=== PATIENT | male | born 1970 | race Caucasian/White ===

== ENCOUNTER 2019-04-29 21:31 | Inpatient (IN) | payer OTHER ==
[~2019-04-29] VITALS: Ht 167.6 cm; Wt 120.5 kg
[2019-04-29] MEDS ORDERED: SEROQUEL200 MG PO (21:46)
[2019-04-29] MEDS ORDERED: MINIPRESS1 MG PO (21:47)
[2019-04-29] MEDS ORDERED: ZONEGRAN100 MG PO (21:47)
[2019-04-29] MEDS ORDERED: AMOXICILLIN500 M1 PO (21:47)
[2019-04-29 23:02] LABS: BASOPHILS 0.3 % (0-2); EOSINOPHILS 3.3 % (0-7); HEMATOCRIT 41.5 % (42.0-54.0); LYMPHOCYTES 28.5 % (15-50); MCH 34.8 pg (26.0-34.0); MCHC 33.7 g/dL (31.0-37.0); MCV 103.2 fL (80.0-100.0); MEAN PLATELET VOLUME 9.4 fL (7.4-10.4); MONOCYTES 8.6 % (2-11); NEUTROPHILS 59.3 % (40-80); PLATELET COUNT 187 10x3/uL (130-400); RBC 4.02 10x6/uL (4.20-6.10); RDW 13.3 % (11.5-14.5)
[2019-04-29 23:03] LABS: APTT 27.6 SECONDS (22.8-39.4); INR 0.98 (0.85-1.17); PROTIME 12.5 SECONDS (11.6-15.0)
[2019-04-29 23:08] LABS: CALC OSMOLALITY 272 mosm/kg (275-300); CALCIUM 8.8 mg/dL (8.5-10.1); CARBON DIOXIDE 23.7 mmol/L (21.0-32.0); CHLORIDE - SERUM 104 mmol/L (98-107); CREATININE - SERUM 0.9 mg/dL (0.6-1.3); GLUCOSE 80 mg/dL (74-106); POTASSIUM - SERUM 3.9 mmol/L (3.5-5.1); SODIUM 138 mmol/L (136-145); UREA NITROGEN 7 mg/dL (7-18); eGFR NON AFRICAN AMERICAN > 90 mL/min (90-120)
[2019-04-29 23:24] LABS: ALBUMIN 3.7 g/dL (3.4-5.0); ALKALINE PHOSPHATASE 85 U/L (46-116); ALT (SGPT) 85 U/L (10-68); BILIRUBIN - TOTAL 0.43 mg/dL (0.2-1.3); CKMB 6.3 U/L (0.0-3.6); PROTEIN - SERUM 7.1 g/dL (6.4-8.2); TROPONIN-I < 0.017 ng/mL (0.000-0.060)
[2019-04-29 23:28] LABS: CREATINE KINASE 826 UL (21-232)
--- NOTE | 2019-04-29 23:38 | NUR ---
PT IN WITH C/O EDEMA TO BLE WORSE TODAY, STATES HE HAS SEEN HIS DOCTOR AND TAKING ANTIBIOTICS FOR BLE CELLULITIS. TODAY HE NOTIFIED MORE PAIN AND EDEMA, FAMILY AT BEDSIDE.
[2019-04-30 01:54] LABS: APPEARANCE CLEAR (CLEAR); BILIRUBIN NEGATIVE (NEGATIVE); COLOR YELLOW (YELLOW); GLUCOSE NEGATIVE (NEGATIVE); KETONE NEGATIVE (NEGATIVE); NITRITE NEGATIVE (NEGATIVE); PROTEIN NEGATIVE (NEGATIVE); SPECIFIC GRAVITY 1.005 (1.005-1.020); UROBILINOGEN NORMAL (NORMAL)
--- NOTE | 2019-04-30 02:50 | NUR ---
ADMITTED TO ROOM FROM FROM ER ALERT AND ORIENTIATED, EDEMA AND REDNESS NOTED TO LOWER LEGS, SEE ASSESSMENT CALL LIGHT IN REACH
[2019-04-30 03:50] VITALS: BP 141/81; Ht 167.6 cm; Wt 120.5 kg
[2019-04-30 05:16] VITALS: BP 141/81
--- NOTE | 2019-04-30 08:21 | NUR ---
PATIENT RECIEVED FROM PREVIOUS NURSE RESTING IN BED WITH NO NEEDS VOICED. ADMITTED WITH CELLULITIS TO BLE. REDNESS AND EDEMA NOTED. CL IN REACH
[2019-04-30 08:27] VITALS: BP 155/98
[2019-04-30 11:53] LABS: HEMATOCRIT 38.5 % (42.0-54.0); HEMOGLOBIN 13.1 g/dL (13.5-17.5); MCH 34.7 pg (26.0-34.0); MCV 101.9 fL (80.0-100.0); MEAN PLATELET VOLUME 8.6 fL (7.4-10.4); RBC 3.78 10x6/uL (4.20-6.10); RDW 13.7 % (11.5-14.5); WBC 2.8 10x3/uL (4.8-10.8)
[2019-04-30 11:54] LABS: PLATELET COUNT 148 10x3/uL (130-400)
[2019-04-30 12:47] VITALS: BP 137/85
[2019-04-30 12:58] LABS: EOSINOPHILS 1 % (0-7); LYMPHOCYTES 10 % (15-50); MONOCYTES 12 % (2-11); NEUTROPHILS 74 % (40-80); PLATELET ESTIMATE NORMAL; ROULEAUX OCC
[2019-04-30 16:53] VITALS: BP 136/93
--- NOTE | 2019-04-30 21:10 | NUR ---
PT C/O LEG PAIN 01/23. GAVE NORCO-5 PO AND ZOFRAN 4MG IV PUSH. GAVE SCHEDULED MEDS. CALLED DR. STAFFORD TO CORRECT DOSAGE ON ZONEGRAN. NO OTHER NEEDS. COMPLETE ASSESSMENT PER FLOW-SHEET. WILL CONTINUE TO MONITOR.
[2019-04-30 21:16] VITALS: BP 148/88
[2019-05-01 01:13] VITALS: BP 150/80
[2019-05-01 04:37] VITALS: BP 162/82
[2019-05-01 06:35] LABS: BASOPHILS 0 % (0-2); EOSINOPHILS 3.2 % (0-7); HEMATOCRIT 38.9 % (42.0-54.0); HEMOGLOBIN 12.9 g/dL (13.5-17.5); LYMPHOCYTES 24.8 % (15-50); MCH 35.1 pg (26.0-34.0); MCHC 33.2 g/dL (31.0-37.0); MEAN PLATELET VOLUME 9.9 fL (7.4-10.4); PLATELET COUNT 156 10x3/uL (130-400); RBC 3.68 10x6/uL (4.20-6.10); RDW 13.5 % (11.5-14.5); WBC 2.2 10x3/uL (4.8-10.8)
[2019-05-01 06:38] LABS: ALKALINE PHOSPHATASE 66 U/L (46-116); BILIRUBIN - TOTAL 0.67 mg/dL (0.2-1.3); CALCIUM 8.7 mg/dL (8.5-10.1); CARBON DIOXIDE 25.5 mmol/L (21.0-32.0); CHLORIDE - SERUM 106 mmol/L (98-107); CREATININE - SERUM 1.1 mg/dL (0.6-1.3); GLUCOSE 100 mg/dL (74-106); POTASSIUM - SERUM 3.7 mmol/L (3.5-5.1); PROTEIN - SERUM 6.1 g/dL (6.4-8.2); SODIUM 140 mmol/L (136-145); eGFR NON AFRICAN AMERICAN 76 mL/min (90-120)
[2019-05-01 06:41] LABS: MCV 105.7 fL (80.0-100.0)
[2019-05-01 06:45] LABS: ALT (SGPT) 55 U/L (10-68); CALC OSMOLALITY 277 mosm/kg (275-300); UREA NITROGEN 10 mg/dL (7-18)
--- NOTE | 2019-05-01 07:25 | NUR ---
ALERT AND ORIENTED, RESTING IN BED. NO C/O PAIN. NO S/S OF ACUTE DISTRESS. BLE EDEMA AND REDNESS. IV TO LEFT FOREARM, NS INFUSING @ 125ML/HR. SITE PATENT WITHOUT REDNESS OR SWELLING. ON ELECTROLYTE PROTOCOL. DENIES ANY NEEDS AT THIS TIME. CALL LIGHT IN REACH. WILL CONTINUE TO MONITOR.
[2019-05-01 08:55] VITALS: BP 132/85
[2019-05-01 12:04] VITALS: BP 136/94
[2019-05-01 14:46] LABS: % SATURATION 35 % (15-55); IRON 77 ug/dl (35-150); TOTAL IRON BIND CAPACITY 214 ug/dl (260-445); UNSAT IRON BIND CAPACITY 137 ug/dl (150-375)
[2019-05-01 16:08] VITALS: BP 135/93
--- NOTE | 2019-05-01 18:45 | NUR ---
ALERT AND ORIENTED, SITTING UP IN BED. C/O PAIN AND NAUSEA, GAVE NORCO AND ZOFRAN. NO S/S OF ACUTE DISTRESS NOTED. DENIES ANY NEEDS AT THIS TIME. CALL LIGHT IN REACH . WILL CONTINUE TO MONITOR.
[2019-05-01 19:30] VITALS: BP 158/92
--- NOTE | 2019-05-01 20:03 | NUR ---
I have reviewed this patient and I concur with the Shift Assessment completed by the Licensed Practical Nurse today this shift.
--- NOTE | 2019-05-01 22:21 | NUR ---
PT C/O LEG PAIN 02/23. GAVE NORCO-10 PO AND ZOFRAN 4 MG IV PUSH. ELEVATED FOOT OF BED. GAVE SCHEDULED MEDS AND BROUGHT PT SNACK. ASSESSMENT COMPLETE PER FLOW-SHEET. NO OTHER NEEDS. WILL REASSESS AND CONTINUE TO MONITOR.
[2019-05-02 00:30] VITALS: BP 151/89
[2019-05-02 04:30] VITALS: BP 148/79
[2019-05-02 06:10] LABS: HEMATOCRIT 38.4 % (42.0-54.0); HEMOGLOBIN 12.7 g/dL (13.5-17.5); MCH 34.6 pg (26.0-34.0); MCHC 33.1 g/dL (31.0-37.0); MCV 104.6 fL (80.0-100.0); MEAN PLATELET VOLUME 9.6 fL (7.4-10.4); PLATELET COUNT 163 10x3/uL (130-400); RBC 3.67 10x6/uL (4.20-6.10); RDW 13.1 % (11.5-14.5)
[2019-05-02 06:13] LABS: WBC 2.9 10x3/uL (4.8-10.8)
[2019-05-02 06:49] LABS: ANION GAP 14.3 mmol/L (8-16); BILIRUBIN - TOTAL 0.68 mg/dL (0.2-1.3); CALCIUM 8.6 mg/dL (8.5-10.1); CARBON DIOXIDE 22.3 mmol/L (21.0-32.0); CREATININE - SERUM 1.2 mg/dL (0.6-1.3); POTASSIUM - SERUM 3.6 mmol/L (3.5-5.1); PROTEIN - SERUM 6.6 g/dL (6.4-8.2)
[2019-05-02 07:58] LABS: EOSINOPHILS 2 % (0-7); LYMPHOCYTES 22 % (15-50); MONOCYTES 7 % (2-11); NEUTROPHILS 66 % (40-80)
[2019-05-02 07:59] VITALS: BP 123/83
[2019-05-02 07:59] LABS: PLATELET ESTIMATE NORMAL
[2019-05-02] MEDS ORDERED: DOXYCYCLINE HY100 M2 PO (14:33)
[2019-05-02] MEDS ORDERED: TEMAZEPAM30 MG PO (15:10)
[2019-05-02] MEDS ORDERED: VALIUM5 MG PO (15:10)
--- NOTE | 2019-05-02 15:21 | NUR ---
SPOKE WITH PT AND CORRECTED HOME MEDICATIONS. PT REQUESTS RX FOR DOXYCYLINE TO BE CALLED TO [facility]. CALLED AND SPOKE TO [facility] PHARMACIST.
== END 2019-05-02 16:02 | disposition home or self-care (01) | DRG 603 ==
LOC: D.ER 21:31 → D.MS 04-30 01:45
PROVIDERS: Family Medicine; ADMIT Internal Medicine Nephrology; ATTEND Internal Medicine Nephrology
DX: L03.116 Cellulitis of left lower limb (principal); Z68.41 Body mass index [BMI] 40.0-44.9, adult; L03.115 Cellulitis of right lower limb; R60.0 Localized edema; D75.89 Other specified diseases of blood and blood-forming organs; E66.01 Morbid (severe) obesity due to excess calories; M71.21 Synovial cyst of popliteal space [Baker], right knee; G40.909 Epilepsy, unspecified, not intractable, without status epilepticus; F43.10 Post-traumatic stress disorder, unspecified; Z72.89 Other problems related to lifestyle

== ENCOUNTER 2019-05-08 01:28 | Emergency (ER) | payer OTHER ==
[~2019-05-08] VITALS: Ht 167.6 cm; Wt 74.8 kg
[~2019-05-08 01:28] MED LIST: AMOXICILLIN500 M1 PO; DOXYCYCLINE HY100 M2 PO; MINIPRESS1 MG PO; SEROQUEL200 MG PO; TEMAZEPAM30 MG PO; VALIUM5 MG PO; ZONEGRAN100 MG PO
[2019-05-08 01:39] VITALS: Ht 167.6 cm; Wt 74.8 kg
[2019-05-08 02:42] LABS: HEMATOCRIT 38.4 % (42.0-54.0); MCH 34.8 pg (26.0-34.0); MCHC 33.9 g/dL (31.0-37.0); MCV 102.7 fL (80.0-100.0); MEAN PLATELET VOLUME 9.6 fL (7.4-10.4); PLATELET COUNT 155 10x3/uL (130-400); RBC 3.74 10x6/uL (4.20-6.10); RDW 13.1 % (11.5-14.5); WBC 2.5 10x3/uL (4.8-10.8)
[2019-05-08 03:18] LABS: EOSINOPHILS 6 % (0-7); LYMPHOCYTES 29 % (15-50); MONOCYTES 13 % (2-11); NEUTROPHILS 52 % (40-80); PLATELET ESTIMATE NORMAL
[2019-05-08 03:40] LABS: CALC OSMOLALITY 279 mosm/kg (275-300); CALCIUM 8.9 mg/dL (8.5-10.1); CARBON DIOXIDE 24.1 mmol/L (21.0-32.0); CHLORIDE - SERUM 103 mmol/L (98-107); CREATININE - SERUM 0.9 mg/dL (0.6-1.3); GLUCOSE 94 mg/dL (74-106); POTASSIUM - SERUM 3.8 mmol/L (3.5-5.1); SODIUM 141 mmol/L (136-145); UREA NITROGEN 10 mg/dL (7-18); eGFR NON AFRICAN AMERICAN > 90 mL/min (90-120)
[2019-05-08 03:46] LABS: ALBUMIN 3.4 g/dL (3.4-5.0); ALKALINE PHOSPHATASE 78 U/L (46-116); ALT (SGPT) 86 U/L (10-68); PROTEIN - SERUM 6.9 g/dL (6.4-8.2)
[2019-05-08] MEDS ORDERED: CLEOCIN HCL300 MG PO (04:03)
[2019-05-08 04:15] VITALS: BP 106/69
== END 2019-05-08 04:15 | disposition home or self-care (01) ==
LOC: D.ER 01:28
PROVIDERS: Family Medicine
DX: L03.90 Cellulitis, unspecified (principal); E66.01 Morbid (severe) obesity due to excess calories; I87.8 Other specified disorders of veins

== ENCOUNTER 2019-05-17 19:12 | Emergency (ER) | payer OTHER ==
[~2019-05-17] VITALS: Ht 167.6 cm; Wt 122.7 kg
[~2019-05-17 19:12] MED LIST changes: +CLEOCIN HCL300 MG PO
[2019-05-17 19:41] VITALS: Ht 167.6 cm; Wt 122.7 kg
[2019-05-17] MEDS ORDERED: PROZAC20 MG PO (19:47)
[2019-05-17 20:41] LABS: BASOPHILS 0.3 % (0-2); HEMATOCRIT 39.5 % (42.0-54.0); HEMOGLOBIN 13.4 g/dL (13.5-17.5); LYMPHOCYTES 13.2 % (15-50); MCH 34.5 pg (26.0-34.0); MCHC 33.9 g/dL (31.0-37.0); MCV 101.8 fL (80.0-100.0); MEAN PLATELET VOLUME 9.6 fL (7.4-10.4); MONOCYTES 7.3 % (2-11); NEUTROPHILS 78.2 % (40-80); PLATELET COUNT 131 10x3/uL (130-400); RBC 3.88 10x6/uL (4.20-6.10); RDW 12.9 % (11.5-14.5); WBC 2.9 10x3/uL (4.8-10.8)
[2019-05-17 21:02] LABS: CALC OSMOLALITY 265 mosm/kg (275-300); CALCIUM 9.2 mg/dL (8.5-10.1); CARBON DIOXIDE 22.2 mmol/L (21.0-32.0); CHLORIDE - SERUM 100 mmol/L (98-107); CREATININE - SERUM 0.9 mg/dL (0.6-1.3); GLUCOSE 87 mg/dL (74-106); POTASSIUM - SERUM 4.1 mmol/L (3.5-5.1); SODIUM 134 mmol/L (136-145); UREA NITROGEN 9 mg/dL (7-18); eGFR NON AFRICAN AMERICAN > 90 mL/min (90-120)
[2019-05-17 21:07] LABS: ALBUMIN 3.3 g/dL (3.4-5.0); ALKALINE PHOSPHATASE 90 U/L (46-116); ALT (SGPT) 60 U/L (10-68); PROTEIN - SERUM 6.9 g/dL (6.4-8.2)
[2019-05-17 21:38] VITALS: BP 154/84
== END 2019-05-17 21:38 | disposition home or self-care (01) ==
LOC: D.ER 19:12
PROVIDERS: Family Medicine
DX: M79.89 Other specified soft tissue disorders (principal); L03.119 Cellulitis of unspecified part of limb; F20.9 Schizophrenia, unspecified

== ENCOUNTER 2019-11-04 14:40 | Emergency (ER) | payer OTHER ==
[~2019-11-04] VITALS: Ht 167.6 cm; Wt 103.2 kg
[~2019-11-04 14:40] MED LIST changes: +PROZAC20 MG PO
[2019-11-04 15:17] VITALS: BP 118/90; Ht 167.6 cm; Wt 103.2 kg
[2019-11-04 16:41] LABS: BASOPHILS 0.2 % (0-2); HEMATOCRIT 36.4 % (42.0-54.0); HEMOGLOBIN 11.9 g/dL (13.5-17.5); IMMATURE GRANULOCYTES 0.2 % (0-5); LYMPHOCYTES 26.1 % (15-50); MCH 33.4 pg (26.0-34.0); MCHC 32.7 g/dL (31.0-37.0); MCV 102.2 fL (80.0-100.0); MEAN PLATELET VOLUME 8.6 fL (7.4-10.4); MONOCYTES 9.2 % (2-11); NEUTROPHILS 60.3 % (40-80); RBC 3.56 10x6/uL (4.20-6.10); RDW 12.9 % (11.5-14.5); WBC 4.2 10x3/uL (4.8-10.8)
[2019-11-04 16:48] LABS: PLATELET COUNT 210 10x3/uL (130-400)
[2019-11-04 16:55] LABS: CALC OSMOLALITY 280 mosm/kg (275-300); CALCIUM 8.7 mg/dL (8.5-10.1); CARBON DIOXIDE 26.1 mmol/L (21.0-32.0); CHLORIDE - SERUM 109 mmol/L (98-107); CREATININE - SERUM 1.1 mg/dL (0.6-1.3); GLUCOSE 101 mg/dL (74-106); POTASSIUM - SERUM 3.9 mmol/L (3.5-5.1); SODIUM 141 mmol/L (136-145); UREA NITROGEN 12 mg/dL (7-18); eGFR NON AFRICAN AMERICAN 76 mL/min (90-120)
[2019-11-04 17:01] LABS: ALBUMIN 3.1 g/dL (3.4-5.0); ALKALINE PHOSPHATASE 74 U/L (30-120); ALT (SGPT) 14 U/L (10-68); PROTEIN - SERUM 6.1 g/dL (6.4-8.2)
== END 2019-11-04 17:54 | disposition home or self-care (01) ==
LOC: D.ER 14:40
PROVIDERS: Family Medicine
DX: S83.91XA Sprain of unspecified site of right knee, initial encounter (principal); I83.891 Varicose veins of right lower extremity with other complications; W19.XXXA Unspecified fall, initial encounter; Y93.9 Activity, unspecified; Y92.9 Unspecified place or not applicable